=== PATIENT | female | born 1985 | race Two or more races ===

== ENCOUNTER 2019-06-19 11:33 | Emergency (ER) | payer SELFPAY ==
[~2019-06-19] VITALS: Ht 162.6 cm; Wt 74.8 kg
[2019-06-19 11:51] VITALS: BP 107/77
[2019-06-19] MEDS ORDERED: KETOROLAC 30 MG/ML VIAL. IM STA (12:23)
[2019-06-19] MEDS ORDERED: DIPHTH,PERTUSS(ACELL),TET TOX 0.5 ML DISP.SYRIN. VAX IM ONE (12:30)
[2019-06-19] MEDS ORDERED: CEPH-264 PO (12:47)
--- NOTE | 2019-06-19 12:48 | PHYS DOC ---
Past Medical History Past Medical History: No Pertinent History Alcohol Use: None Drug Use: None Adult General Chief Complaint Chief Complaint: ANIMAL BITE HPI HPI Patient is a 34 year old female that presents after getting bit by a dog of unknown origin around 10:17 AM. The patient states that she was bit on her left hand third digit. Patient is not sure she's had tetanus within the last 5 years. The patient states that the dog got hit by car but will be taken to that clinic for testing. Did not appear to have symptoms or rabies. She rates her pain as 9 out of 10 in severity. Has not taking medicine prior to arrival. Review of Systems Review of Systems Constitutional: Denies fever or chills [] Eyes: Denies change in visual acuity, redness, or eye pain [] HENT: Denies nasal congestion or sore throat [] Respiratory: Denies cough or shortness of breath [] Cardiovascular: No additional information not addressed in HPI [] GI: Denies abdominal pain, nausea, vomiting, bloody stools or diarrhea [] : Denies dysuria or hematuria [] Musculoskeletal: Reports bit on 3rd digit L hand. Integument: Denies rash or skin lesions [] Neurologic: Denies headache, focal weakness or sensory changes [] Endocrine: Denies polyuria or polydipsia [] Complete systems were reviewed and found to be within normal limits, except as documented in this note. Current Medications Current Medications Current Medications Medications (Trade) Dose Ordered Sig/Giancarlo Start Time Stop Time Status Last Admin Dose Admin Diphtheria/ Tetanus/Acell Pertussis (Boostrix) 0.5 ml ONCE ONCE 06/19/19 12:30 06/19/19 12:48 DC 06/19/19 12:53 0.5 ML Ketorolac Tromethamine (Toradol 30mg Vial) 30 mg 1X STAT 06/19/19 12:23 06/19/19 12:48 DC Allergies Allergies Allergies Coded Allergies Type Severity Reaction Last Updated Verified No Known Drug Allergies 06/19/19 No Physical Exam Physical Exam Constitutional: Well developed, well nourished, no acute distress, non-toxic appearance. [] HENT: Normocephalic, atraumatic, bilateral external ears normal, oropharynx moist, no oral exudates, nose normal. [] Eyes: PERRLA, EOMI, conjunctiva normal, no discharge. [] Neck: Normal range of motion, no tenderness, supple, no stridor. [] Cardiovascular:Heart rate regular rhythm, no murmur [] Lungs & Thorax: Bilateral breath sounds clear to auscultation [] Abdomen: Bowel sounds normal, soft, no tenderness, no masses, no pulsatile masses. [] Skin: Warm, dry, no erythema, no rash. [] Back: No tenderness, no CVA tenderness. [] Extremities: Tenderness to L hand 3rd digit, 2 small puncture wounds, bleeding controlled, able to bend finger, neurostatus intact. Neurologic: Alert and oriented X 3, normal motor function, normal sensory function, no focal deficits noted. [] Psychologic: Affect normal, judgement normal, mood normal. [] Current Patient Data Vital Signs Vital Signs Date Time Temp Pulse Resp B/P (MAP) Pulse Ox O2 Delivery O2 Flow Rate FiO2 06/19/19 11:51 98.4 69 15 107/77 (87) 95 Room Air 98.4 EKG EKG [] Radiology/Procedures Radiology/Procedures [][facility] [address] [place] [address] IMAGING REPORT Signed PATIENT: JUAN CHAUDHRY RACCOUNT: [id number] : 1985 LOCATION: ER AGE: 34 SEX: F EXAM STATUS: REG ER ORD. PHYSICIAN: DMITRIY VAZQUEZ APRN REASON: animal bite. laceration to 3rd and 4th digit PROCEDURE: HAND RIGHT 3V Three-view left hand radiographs 06/19/2019 CLINICAL HISTORY: Animal bite with laceration to the left third and fourth fingers. PA, lateral and oblique digital radiographs left hand were obtained. No fracture or dislocation of the left hand is seen. No radiopaque foreign body is noted. IMPRESSION: No fracture or radiopaque foreign body is seen involving the left hand. Electronically signed by: Yonatan Samuels MD (06/19/2019 12:54 PM) [facility] DICTATED and SIGNED BY: YONATAN SAMUELS MD DATE: 06/19/19 9174 Course & Med Decision Making Course & Med Decision Making Pertinent Labs and Imaging studies reviewed. (See chart for details) Will get X-ray and give Boostrix and Tetanus. X-ray negative. Will send home on Antibiotics. Dragon Disclaimer Dragon Disclaimer This electronic medical record was generated, in whole or in part, using a voice recognition dictation system. Departure Departure Impression: Primary Impression: Animal bite of finger Disposition: HOME, SELF-CARE Condition: STABLE Referrals: NO PCP (PCP) Patient Instructions: Animal Bite Additional Instructions: Thank you for visiting [facility]. We appreciate you trusting us with your care. If any additional problems come up don't hesitate to return to visit us. Please follow up with your primary care provider so they can plan additional care if needed and know about the problem that you had. If symptoms worsen come back to the Emergency Department. Any concerning symptoms that start such as chest pain, shortness of air, weakness or numbness on one side of the body, running high fevers or any other concerning symptoms return to the ER. You have been prescribed an antibiotic today to help fight your infection. Please take all of the antibiotic as directed. If after 48 hours the infection is not improving, please return for more care. If the infection worsens, return to ER for additional care. Scripts Cephalexin (KEFLEX) 500 Mg Capsule 1 CAP PO BID for 7 Days, #14 CAP Prov: DMITRIY VAZQUEZ APRN 06/19/19 Problem Qualifiers Primary Impression: Animal bite of finger Encounter type: initial encounter Qualified Codes: S61.259A - Open bite of unspecified finger without damage to nail, initial encounter DMITRIY VAZQUEZ APRN Jun 19, 2019 12:48
--- NOTE | 2019-06-19 12:56 | RAD ---
Three-view left hand radiographs 06/19/2019 CLINICAL HISTORY: Animal bite with laceration to the left third and fourth fingers. PA, lateral and oblique digital radiographs left hand were obtained. No fracture or dislocation of the left hand is seen. No radiopaque foreign body is noted. IMPRESSION: No fracture or radiopaque foreign body is seen involving the left hand. Electronically signed by: Yonatan Peacock MD (06/19/2019 12:54 PM) [facility]
== END 2019-06-19 13:31 | disposition home or self-care (01) ==
LOC: ER 11:33
DX: S61.253A Open bite of left middle finger without damage to nail, initial encounter (principal); S61.255A Open bite of left ring finger without damage to nail, initial encounter; W54.0XXA Bitten by dog, initial encounter; Y93.89 Activity, other specified; Y92.89 Other specified places as the place of occurrence of the external cause; Y99.8 Other external cause status
CPT/HCPCS: 73130; 90471; 90715; 99284

== ENCOUNTER → 2020-10-09 | Outpatient (CLI) | payer OTHER ==
[~2020-10-09] MED LIST: CEPH-264 PO
--- NOTE | 2020-10-09 16:31 | RAD ---
Study: XR LUMBAR SPINE 2-3V Indication: Low back pain. Comparison: None. Findings: 5 nonrib-bearing lumbar vertebral elements. Within normal limits alignment in the coronal plane. Slig ht straightening of lumbar lordosis. Maintained vertebral body and disc space height. Unremarkable fa cet joints. Grossly intact posterior elements. Unremarkable SI joints and partially evaluated sacrum. Impression: No fracture or advanced spondylosis throughout the lumbar spine. Electronically signed by: JOYCE MORENO MD (10/09/2020 4:28 PM) [id number]
== END ==
LOC: RAD 12:11
PROVIDERS: ATTEND Family Medicine
DX: M54.5 Low back pain (principal); M40.46 Postural lordosis, lumbar region
CPT/HCPCS: 72100

== ENCOUNTER → 2021-11-15 | Outpatient (CLI) | payer OTHER ==
--- NOTE | 2021-11-15 07:54 | RAD ---
EXAM: ULTRASOUND ABDOMEN COMPLETE 11/15/2021. CLINICAL HISTORY: Reason: PAIN OF UPPER ABDOMEN / Spl. Instructions: / History: COMPARISON: None available. TECHNIQUE: Ultrasound of the upper abdomen was performed. FINDINGS: The liver is homogeneous in echogenicity. No focal hepatic mass. Intrahepatic and extra hepatic bilia ry tree normal in caliber. The CBD measures 2 mm Gallbladder normal in size and echogenicity. No gallbladder wall thickening or pericholecystic fluid. No gallstones are seen. Right kidney measures 11.7 cm in length. Left kidney measures 12.1 cm in length. No hydronephrosis. Spleen is homogeneous in echogenicity and measures 9.1 cm in longitudinal Limited visualized portions of pancreas aorta and IVC unremarkable. No significant ascites. IMPRESSION: Negative abdominal ultrasound Electronically signed by: Filemon Hernandez MD (11/15/2021 7:52 AM) [id number]
== END ==
LOC: US 07:00
PROVIDERS: ATTEND Family Medicine
DX: R10.10 Upper abdominal pain, unspecified (principal)
CPT/HCPCS: 76700